=== PATIENT | female | born 1960 | race Caucasian/White ===

== ENCOUNTER 2016-07-11 21:13 | Emergency (ER) | payer OTHER ==
[~2016-07-11] VITALS: Ht 157.5 cm; Wt 77.3 kg
[2016-07-11 21:16] VITALS: TEMP 98.6
[2016-07-11] MEDS ORDERED: CELEBREX50 MG PO (21:21)
[2016-07-11] MEDS ORDERED: CLARITIN 1010 MG/TAB PO (21:21)
[2016-07-12 03:15] VITALS: BP 160/78; PULSE 77
== END 2016-07-12 03:16 | disposition home or self-care (01) ==
LOC: COL.ER 21:13
DX: H40.212 Acute angle-closure glaucoma, left eye (principal); Q85.00 Neurofibromatosis, unspecified

== ENCOUNTER 2016-08-07 16:08 | Emergency (ER) | payer OTHER ==
[~2016-08-07] VITALS: Ht 157.5 cm; Wt 75.5 kg
[~2016-08-07 16:08] MED LIST: CELEBREX50 MG PO; CLARITIN 1010 MG/TAB PO
[2016-08-07] MEDS ORDERED: ADVIL200 MG PO (16:29)
[2016-08-07] MEDS ORDERED: PREDFORTE15ML (16:35)
[2016-08-07] MEDS ORDERED: POLYMYXIN B/TRIMETH OS (16:36)
[2016-08-07 17:03] VITALS: BP 143/87; PULSE 81; TEMP 98.1
== END 2016-08-07 17:12 | disposition home or self-care (01) ==
LOC: COL.ER 16:08
DX: H57.8 Other specified disorders of eye and adnexa (principal); E11.9 Type 2 diabetes mellitus without complications; M19.90 Unspecified osteoarthritis, unspecified site; Z98.42 Cataract extraction status, left eye; Z90.710 Acquired absence of both cervix and uterus; Z86.69 Personal history of other diseases of the nervous system and sense organs

== ENCOUNTER → 2017-01-20 | Outpatient (CLI) | payer OTHER ==
[~2017-01-20] MED LIST changes: +ADVIL200 MG PO; +POLYMYXIN B/TRIMETH OS; +PREDFORTE15ML
== END ==
LOC: MC.RAD 09:00
DX: Z12.31 Encounter for screening mammogram for malignant neoplasm of breast (principal); R92.0 Mammographic microcalcification found on diagnostic imaging of breast

== ENCOUNTER → 2017-01-25 | Outpatient (CLI) | payer OTHER | LOC: MC.RAD 10:51 | DX: R92.1 Mammographic calcification found on diagnostic imaging of breast (principal) ==

== ENCOUNTER → 2017-02-09 | Outpatient (CLI) | payer OTHER | LOC: MC.RAD 08:18 | DX: R92.1 Mammographic calcification found on diagnostic imaging of breast (principal) ==

== ENCOUNTER → 2018-03-28 | Outpatient (CLI) | payer OTHER | LOC: MC.RAD 06:59 | DX: Z12.31 Encounter for screening mammogram for malignant neoplasm of breast (principal); Z98.890 Other specified postprocedural states ==

== ENCOUNTER → 2019-04-06 | Outpatient (CLI) | payer OTHER | LOC: MC.RAD 12:47 | DX: Z12.31 Encounter for screening mammogram for malignant neoplasm of breast (principal) ==

== ENCOUNTER → 2019-06-05 | Outpatient (CLI) | payer OTHER | LOC: COL.RAD 08:38 | DX: D32.9 Benign neoplasm of meninges, unspecified (principal); H93.92 Unspecified disorder of left ear | CPT/HCPCS: A9585 ==

== ENCOUNTER → 2019-06-15 | Outpatient (CLI) | payer OTHER ==
[~2019-06-15] MED LIST changes: +B-121000 MCG PO; +CALTRATE-600 W600 MG PO; +D3-5050000 IU PO; +HAIRSKINNAILS PO; +HEALTHY EYES PO; +IRON TABLETS325 MG PO; +MULTIPLE VITAMI1 CAP PO; +VITAMIN A10k PO; +VITAMIN C500 MG PO; +VITAMINE200; +[UNRECOGNIZED DRUG - OTHER] PO
== END ==
LOC: COL.RAD 06-13 09:45
DX: M47.816 Spondylosis without myelopathy or radiculopathy, lumbar region (principal); M48.061 Spinal stenosis, lumbar region without neurogenic claudication
CPT/HCPCS: A9585

== ENCOUNTER → 2019-06-18 | Outpatient (CLI) | payer OTHER | LOC: COL.RAD 08:51 | DX: R93.89 Abnormal findings on diagnostic imaging of other specified body structures (principal); M54.9 Dorsalgia, unspecified | CPT/HCPCS: A9503 ==

== ENCOUNTER → 2019-06-19 | Outpatient (CLI) | payer OTHER ==
[~2019-06-19] VITALS: Ht 157.5 cm; Wt 71.4 kg
[2019-06-19 09:00] VITALS: BP 146/79; PULSE 90
--- NOTE | 2019-06-19 10:55 | NUR ---
PROCEDURE CANCELLED BY DR ESTRELLA
== END ==
LOC: COL.RAD 08:38
DX: K11.8 Other diseases of salivary glands (principal)

== ENCOUNTER → 2020-04-09 | Outpatient (CLI) | payer OTHER ==
[~2020-04-09] MED LIST changes: +BONIVA150 MG PO; +DITROPAN 5MG TAB5 MG PO; +MASON NATURAL2000 IU PO; +NEURONTIN100 MG/CAP PO
== END ==
LOC: MC.RAD 10:44
DX: Z12.31 Encounter for screening mammogram for malignant neoplasm of breast (principal); Z98.82 Breast implant status

== ENCOUNTER → 2020-06-18 | Outpatient (CLI) | payer OTHER ==
[~2020-06-18] VITALS: Ht 157.5 cm; Wt 86.2 kg
[2020-06-18 06:58] VITALS: BP 150/67; PULSE 96
--- NOTE | 2020-06-18 08:25 | NUR ---
procedure cancelled by Dr Obregon due to INR at 2.0
== END ==
LOC: COL.RAD 06:26
PROVIDERS: Internal Medicine Gastroenterology
DX: R93.2 Abnormal findings on diagnostic imaging of liver and biliary tract (principal); R74.8 Abnormal levels of other serum enzymes